=== PATIENT | female | born 1945 | race Caucasian/White ===

== ENCOUNTER 2017-01-06 12:24 | Inpatient (IN) | payer MEDICARE ==
[2017-01-06 13:40] LABS: Basophils % (Auto) 0.5 % (0.0-1.8); Eosinophils % (Auto) 1.2 % (0.0-4.3); Hemoglobin 13.3 gm/dl (10.1-14.3); Mean Corpuscular HGB Conc 35 % (30-34); Mean Corpuscular Hemoglobin 32 pg (28-32); Mean Corpuscular Volume 91 fl (79-97); Platelet Count 265 K/mm3 (140-440); Red Blood Count 4.16 M/mm3 (3.65-5.03); Red Cell Distribution Width 16.3 % (13.2-15.2)
--- NOTE | 2017-01-06 13:43 | Emergency Department Report ---
HPI - General Chief Complaint: Chest Pain Time Seen by Provider: 01/06/17 12:54 - HPI HPI: This is a 71-year-old female presents to the emergency department with complaint of midsternal chest pressure and some shortness of breath that started this morning. She denies any back pain, nausea, vomiting, diaphoresis. She did not take anything but her normal medications for her symptoms prior to presentation. She has a history of CHF, mentioned, diabetes, hypertension but denies any history of DE, CVA, PE/DVT. Her microsoft bi developer is Dr. Willow Ramos and her primary care doctor is a Rocky Restrepo. No recent travel or sick contacts at home. She came in by EMS and did not receive anything in route. ED Past Medical Hx - Past Medical History Previous Medical History?: Yes Hx Hypertension: Yes Hx Congestive Heart Failure: Yes Hx Diabetes: Yes Hx Asthma: Yes Hx Dementia: Yes Additional medical history: BLIND LEFT EYE - Surgical History Past Surgical History?: Yes Hx Pacemaker: Yes Additional Surgical History: HYSTERECTOMY - Social History Smoking Status: Never Smoker Substance Use Type: None - Medications Home Medications: Home Medications Medication Instructions Recorded Confirmed Last Taken Type AtorvaSTATin [Lipitor] 10 mg PO DAILY 07/10/15 01/06/17 07/10/15 History Fluticasone/Salmeterol [Advair 1 puff IH BID #1 disk.w.dev 08/20/15 01/06/17 Unknown Rx Diskus 250-50 mcg] Insulin NPH/Regular [NovoLIN 70/30] 30 unit SQ QPM 08/20/15 01/06/17 Unknown History Insulin NPH/Regular [NovoLIN 70/30] 40 unit SQ QAM 08/20/15 01/06/17 Unknown History Potassium Chloride 8 meq PO QDAY 08/20/15 01/06/17 Unknown History Albuterol Sulfate [Ventolin HFA] 1 puff IH Q4H PRN #1 hfa.aer.ad 10/24/15 Unknown Rx Furosemide [Lasix TAB] 20 mg PO QDAY 05/31/16 01/06/17 Unknown History Losartan [Cozaar] 50 mg PO QDAY 05/31/16 01/06/17 Unknown History Famotidine [Pepcid] 20 mg PO BID #20 tablet 06/01/16 01/06/17 Unknown Rx ED Review of Systems ROS: Stated complaint: CHEST PAIN/SHORTNESS OF BREATH Other details as noted in HPI Comment: All other systems reviewed and negative Constitutional: denies: chills, fever Eyes: denies: eye pain, eye discharge, vision change ENT: denies: ear pain, throat pain Respiratory: shortness of breath. denies: cough, wheezing Cardiovascular: chest pain. denies: palpitations Gastrointestinal: denies: abdominal pain, nausea, diarrhea Genitourinary: denies: urgency, dysuria, discharge Musculoskeletal: denies: back pain, joint swelling, arthralgia Skin: denies: rash, lesions Neurological: denies: headache, weakness, paresthesias Physical Exam - Physical Exam Vital Signs: Vital Signs 01/06/17 12:49 Temperature 98.2 F Pulse Rate 79 Respiratory 19 Rate Blood Pressure 170/79 [Left] O2 Sat by Pulse 98 Oximetry Physical Exam: GENERAL: The patient is well-developed well-nourished. HEENT: Normocephalic. Atraumatic. Extraocular motions are intact. Patient has moist mucous membranes. Pupils equal reactive to light bilaterally. NECK: Supple. Trachea is midline. CHEST/LUNGS: Clear to auscultation. There is no respiratory distress noted. HEART/CARDIOVASCULAR: Regular. There is no tachycardia. There is no gallop rub or murmur. ABDOMEN: Abdomen is soft, nontender. Patient has normal bowel sounds. There is no abdominal distention. SKIN: There is no rash. There is no edema. There is no diaphoresis. NEURO: The patient is awake, alert, and oriented. The patient is cooperative. The patient has no focal neurologic deficits. The patient has normal speech. MUSCULOSKELETAL: There is no tenderness or deformity. There is no limitation range of motion. There is no evidence of acute injury. ED Course Vital Signs 01/06/17 12:49 Temperature 98.2 F Pulse Rate 79 Respiratory 19 Rate Blood Pressure 170/79 [Left] O2 Sat by Pulse 98 Oximetry ED Medical Decision Making - Lab Data Result diagrams: 01/06/17 13:09 01/06/17 13:09 - EKG Data -: EKG Interpreted by Me EKG shows normal: sinus rhythm, axis (LAD), intervals, QRS complexes (Q waves to septal leads), ST-T waves (flat t waves) Rate: normal - EKG Data When compared to previous EKG there are: previous EKG unavailable Interpretation: nonspecific ST-T wave artur, other (q waves to septal leads) - Radiology Data Radiology results: image reviewed interpreted by me: Chest x-ray did not show any acute process. Heart is normal shape and size. No effusions. No pneumothorax. No signs of pneumonia seen. - Medical Decision Making 71-year-old female presents with chest pain and shortness of breath for the past few days. EKG shows some Q waves but no obvious ST elevation DE. Chest x- ray does not show any acute process. So far patient has negative troponin 1 and a negative d-dimer. Patient given some pain medication but still continues to have discomfort. She had a stress test about 9 months ago. However since the patient continues to have discomfort and has multiple risk factors, she'll be admitted to hospital for further evaluation and treatment. She has been accepted for admission by the hospitalist, Dr. Vincent. - Differential Diagnosis DE, PE, pneumonia, costochondritis, bronchitis Critical Care Time: No Critical care attestation.: If time is entered above; I have spent that time in minutes in the direct care of this critically ill patient, excluding procedure time. ED Disposition Clinical Impression: History of permanent cardiac pacemaker placement Chest pain Qualifiers: Chest pain type: unspecified Qualified Code(s): R07.9 - Chest pain, unspecified Hypertension Qualifiers: Hypertension type: essential hypertension Qualified Code(s): I10 - Essential ( primary) hypertension Disposition: OP ADMITTED IP TO THIS HOSP Is pt being admited?: Yes Condition: Stable Time of Disposition: 17:52
[2017-01-06 13:46] LABS: Anion Gap 18 mmol/L; BUN/Creatinine Ratio 31.25; Blood Urea Nitrogen 25 mg/dL (7-17); Calcium 9.3 mg/dL (8.4-10.2); Carbon Dioxide 23 mmol/L (22-30); Chloride 99.3 mmol/L (98-107); Glucose 157 mg/dL (65-100); Potassium 3.7 mmol/L (3.6-5.0); Sodium 137 mmol/L (137-145)
--- NOTE | 2017-01-06 14:10 | XRay Report ---
AP CHEST: HISTORY: chest pain 2-lead pacemaker devices unchanged since 05/31/16. Heart size and pulmonary vascularity are within normal limits. The lungs are mildly hyperinflated but clear. No evidence for pneumonia, CHF or pneumothorax. IMPRESSION: No acute cardiopulmonary process.
[2017-01-06] MEDS ORDERED: MORPHINE IV ONE (14:24)
[2017-01-06] MEDS ORDERED: NORMODYNE IV ONE (14:24)
[2017-01-06] MEDS ORDERED: MORPHINE ONE (14:39)
--- NOTE | 2017-01-06 15:04 | History and Physical Report ---
History of Present Illness Chief complaint: My chest Hurts History of present illness: 71 YO Female with DM, CHF, Dementia,Asthma,HTN, COPD, HLD, Metabolic Syndrome presents to ED for evaluation. Pt states that she has been experiencing pain in her chest for the past 1 day. Pt states that pain in 5/10, substernal, nonradiating, not worsened with exertion, or relieved with rest. Pain is constant, not associated with meals. Pt denies leg pain, calf swelling, prolonged travel/immobility, individual/family history of DVT/PE, syncope, hemoptysis, trauma, productive cough, fever, unintentional weight loss, night sweats, or recent ill contacts. Past History Past Medical History: arthritis, COPD, diabetes, heart failure, hypertension, hyperlipidemia Past Surgical History: hysterectomy, Other (Pacemaker placement.) Social history: single, lives with family. denies: smoking, alcohol abuse Family history: diabetes, hypertension Medications and Allergies Allergies Allergy/AdvReac Type Severity Reaction Status Date / Time aspirin AdvReac Unknown Verified 10/24/15 03:19 Home Medications Medication Instructions Recorded Confirmed Last Taken Type AtorvaSTATin [Lipitor] 10 mg PO DAILY 07/10/15 01/06/17 07/10/15 History Fluticasone/Salmeterol [Advair 1 puff IH BID #1 disk.w.dev 08/20/15 01/06/17 Unknown Rx Diskus 250-50 mcg] Insulin NPH/Regular [NovoLIN 70/30] 30 unit SQ QPM 08/20/15 01/06/17 Unknown History Insulin NPH/Regular [NovoLIN 70/30] 40 unit SQ QAM 08/20/15 01/06/17 Unknown History Potassium Chloride 8 meq PO QDAY 08/20/15 01/06/17 Unknown History Albuterol Sulfate [Ventolin HFA] 1 puff IH Q4H PRN #1 hfa.aer.ad 10/24/15 Unknown Rx Furosemide [Lasix TAB] 20 mg PO QDAY 05/31/16 01/06/17 Unknown History Losartan [Cozaar] 50 mg PO QDAY 05/31/16 01/06/17 Unknown History Famotidine [Pepcid] 20 mg PO BID #20 tablet 06/01/16 01/06/17 Unknown Rx Review of Systems All systems: negative Cardiovascular: chest pain Exam - Constitutional Vitals: Temp Pulse Resp BP Pulse Ox 98.2 F 79 19 170/79 98 01/06/17 12:49 01/06/17 12:49 01/06/17 12:49 01/06/17 12:49 01/06/17 12:49 General appearance: Present: obese - EENT Eyes: Present: PERRL ENT: hearing intact, clear oral mucosa - Neck Neck: Present: supple, normal ROM - Respiratory Respiratory effort: normal Respiratory: bilateral: CTA - Cardiovascular Heart Sounds: Present: S1 & S2. Absent: rub, click - Extremities Extremities: pulses symmetrical, No edema Peripheral Pulses: within normal limits - Abdominal General gastrointestinal: Present: soft, non-tender, non-distended, normal bowel sounds Female genitourinary: Present: normal - Integumentary Integumentary: Present: clear, warm, dry - Musculoskeletal Musculoskeletal: gait normal, strength equal bilaterally - Psychiatric Psychiatric: appropriate mood/affect, intact judgment & insight - Neurologic Neurologic: CNII-XII intact, moves all extremities Results - Labs CBC & Chem 7: 01/06/17 13:09 01/06/17 13:09 Labs: Abnormal lab results 01/06/17 01/06/17 Range/Units 13:09 13:09 WBC 13.0 H (4.5-11.0) K/mm3 MCHC 35 H (30-34) % RDW 16.3 H (13.2-15.2) % Seg Neutrophils % 78.1 H (40.0-70.0) % Seg Neutrophils # 10.2 H (1.8-7.7) K/mm3 BUN 25 H (7-17) mg/dL Glucose 157 H (65-100) mg/dL Assessment and Plan - Patient Problems (1) Angina at rest Current Visit: Yes Status: Acute Plan to address problem: Chest pain protocol: Serial cardiac enzymes, ekg, telemetry monitoring, D dimer , PPI therapy (2) Accelerated hypertension Current Visit: Yes Status: Acute Plan to address problem: Monitor BP q shift, resume home medication (3) Diabetes Current Visit: Yes Status: Acute Qualifiers: Diabetes mellitus type: D Diabetes mellitus complication status: D Diabetes mellitus complication detail: D Diabetic retinopathy severity: D Proliferative retinopathy type: P Diabetes mellitus macular edema: D Diabetes mellitus rodent exterminator insulin use: D Laterality: L Chronic kidney disease stage: C Plan to address problem: ADA diet, insulin, accu check (4) COPD (chronic obstructive pulmonary disease) Current Visit: Yes Status: Acute Qualifiers: COPD type: C Chronic bronchitis type: C Emphysema type: E Plan to address problem: supplemental oxygen, nebs, NIPPV as clinically indicated. (5) DVT prophylaxis Current Visit: Yes Status: Acute
[2017-01-06] MEDS ORDERED: ZOFRAN IV PRN (15:08)
[2017-01-06] MEDS ORDERED: DUONEB 0.5 MG-3 MG/3 ML SOLN IH PRN (15:08)
[2017-01-06] MEDS ORDERED: MILK OF MAGNESIA PO PRN (15:08)
[2017-01-06] MEDS ORDERED: TYLENOL PO PRN (15:08)
[2017-01-06] MEDS ORDERED: DULCOLAX PR PRN (15:08)
[2017-01-06] MEDS ORDERED: SODIUM CHLORIDE FLUSH SYRINGE 10 ML IV PRN (15:10)
[2017-01-06] MEDS ORDERED: PROAIR IH PRN (15:11)
[2017-01-06] MEDS ORDERED: PROTONIX PO ONE (15:13)
--- NOTE | 2017-01-06 15:15 | Admit Criteria Form ---
Admission Criteria Documentation: CHEST PAIN Clinical Indications for Admission to Inpatient Care (Place 'X' for any and all applicable criteria): Admission is indicated for chest pain and ANY ONE of the following(1)(2)(3)(4)(5 ): [ ]I. Angina with acute coronary syndrome (Also use Myocardial Infarction or Angina guideline) [ ]II. Hemodynamic instability [X ]III. Angina needing acute intervention as indicated by ALL of the following (11)(12): [X ]a) Unstable angina is present as indicated by angina that is ANY ONE of the following: [ ]i) New onset [ ]ii) Nocturnal [X ]iii) Prolonged at rest [ ]iv) Progressive [ X]b) Angina warrants acute intervention as indicated by ANY ONE of the following: [ ]i) Recurrent angina (e.g, not responding as previously to treatment) [ ]ii) Angina at rest or with low-level activities despite initial medical therapy [ ]iii) New or presumably new ST-segment depression on ECG [ ]iv) Signs or symptoms of heart failure (eg, dyspnea, pulmonary edema) [ ]v) New or worsening mitral regurgitation [ ]vi) Hemodynamic instability [ ]vii) Dangerous arrhythmia (eg, sustained ventricular tachycardia) [ ]viii) History of percutaneous coronary intervention within 6 months [ ]ix) History of coronary artery bypass graft surgery [ ]x) BREONNA risk score of 2 or greater[A] [X ]xi) History of Diabetes(14) [ ]xii) High-risk cardiac ischemia findings on noninvasive testing (e.g, echocardiogram, treadmill testing, nuclear scan) [ ]xiii) Chronic renal insufficiency (ie, estimated GFR less than 60 mL/min/1.732m) [ ]xiv) Left ventricular ejection fraction less than 40% [ ]IV. Evidence of OH (eg, cardiac biomarkers positive, ST-segment elevation on ECG) also use Myocardial Infarction Criteria Form. [ ]V. Pulmonary edema [ ]. Respiratory distress [ ]VII. Chest pain indicative of serious diagnosis other than coronary artery disease (eg, aortic dissection) [ ]VIII. Contraindications and/or Inappropriate clinical situations for Observational Care in patients with Chest Pain, when ANY ONE of the following is required: [ ]a) Patient with risk factor for pulmonary embolism, acute coronary syndrome and myocardial infarction (18) [ ]b) Patient with Pulmonary embolism require an average LOS of 4.3 days, therefore emergency department observation management is inappropriate 18,23 [ ]c) Painful condition/s in the elderly, have the highest rate of recidivism after emergency department observation management (10.8%) 20,21,22 [ ]d) Elevated cardiac biomarker requires intensive and exhaustive care (19) [X ]IX. General contraindications and/or Inappropriate clinical situations for Observational Care in patients with Chest Pain, when ANY ONE of the following is required: [X ]a) Prediction of prolongation of LOS based on ANY ONE of the following may be considered as a contraindication for observational care 2, 3, 4, 5, 6, 7, 8, 9, 10, 11 [X ]i) Age > 65 yrs. [ ]ii) Patient arriving by ambulance [ ]iii) Patient with high acuity [ ]iv) Patient requiring vital sign monitoring [ ]v) Patient on IV medication [ ]b) Systolic blood pressures 180mmHg 3,12 [ ]c) Patient with altered mental status including delirium and other alteration of consciousness, (3) [ ]d) Patient whose discharge disposition will be to a retirement home or rehabilitation home should not be managed in Emergency Department Observation Unit. CMS rule requires 3 days hospital stay before such placement. 3,13 [ ]e) Patient with failure to thrive due to broad array of etiologies 3,16,17 [ ]f) Inability to ambulate 3,14 Extended stay beyond goal length of stay may be needed for (1)(28): [ ]a) Specific condition diagnosed after evaluation (eg, pulmonary embolism, aortic dissection) [ ]b) Unstable angina [ ]c) Continued suspicion of acute coronary syndrome with inability to complete needed cardiac evaluation (eg, patient clinically unable to undergo stress testing) [ ]d) Myocardial infarction (Contents from ANGINA and CHEST PAIN clinical indications for admission to inpatient care have been integrated in this form) The original [employer] content created by [employer] has been revised. The portions of the content which have been revised are identified through the use of italic text or in bold, and [facility] has neither reviewed nor approved the modified material. All other unmodified content is copyright [facility]. Please see references footnoted in the original [facility] edition 2016 Admission Criteria Met: Yes
[2017-01-06] MEDS ORDERED: PROVENTIL IH PRN (15:24)
[2017-01-06 18:07] LABS: Creatine Kinase MB 1.5 ng/mL (0.0-4.0)
[2017-01-06 18:08] LABS: Creatine Kinase 56 units/L (30-135)
[2017-01-06] MEDS: PULMICORT IH SCH (20:30)
[2017-01-06] MEDS: BROVANA NEBU IH SCH (20:30)
[2017-01-06 21:52] LABS: Creatine Kinase MB 1.3 ng/mL (0.0-4.0)
[2017-01-06 21:53] LABS: Creatine Kinase 56 units/L (30-135)
[2017-01-06] MEDS ORDERED: NON-FORMULARY (Fluticasone/Salmeterol [Advair Diskus 250-50 Mcg] 1 PUFF) IH SCH (22:00)
[2017-01-06] MEDS: PEPCID PO SCH (23:31)
[2017-01-07] MEDS: PULMICORT IH SCH (08:07)
[2017-01-07] MEDS: BROVANA NEBU IH SCH (08:08)
[2017-01-07] MEDS ORDERED: D50W (25GM) IV ONE ×2 (09:00→10:00)
[2017-01-07] MEDS ORDERED: LASIX PO SCH (10:00)
[2017-01-07] MEDS ORDERED: KLOR-CON 8 PO SCH (10:00)
[2017-01-07] MEDS ORDERED: LEXISCAN IV ONE (11:00)
--- NOTE | 2017-01-07 11:21 | Progress Note ---
Assessment and Plan Assessment and plan: Patient is a 71 yo woman with DM, CHF, Dementia, Asthma, HTN, COPD and HLD, who presented with CP. Cardiac enzymes was negative. CXR was negative for acute findings, WBC was 13 without s/sx of infection. -CP, msk, costochondritis if stress test negative -dm hyperosmolality most likely History Interval history: Patient seen and examined. Follow up on chest pain which has resolved. Overnight uneventful. No cp, sob, n/v or severe headaches. Imaging, old records , testing, labs, nursing notes reviewed. Plan discussed with patient. Hospitalist Physical - Physical exam Narrative exam: GEN: WDWN, NAD, AWAKE, ALERT, ORIENTATED 3 HEENT: NCAT, PERRL, EOMI, OP CLEAR NECK: SUPPLE, NO THYROMEGALY, NO JVD, NO LAD CVS: RRR, NORMAL S1S2 LUNGS/CHEST: CTA B, NORMAL CHEST EXPANSION B, GOOD AIR ENTRY B, reproducible substernal chest wall tenderness ABD: SOFT NTND, GBS, NO REBOUND OR GUARDING EXT/SKIN: NO SIGNIFICANT EDEMA OR RASH MSK: FROM X 4 EXTREMITIES NEURO: CN 2-12 GROSSLY INTACT, NO new FOCAL DEFICITS PSY: CALM - Constitutional Vitals: Temp Pulse Resp BP Pulse Ox 97.6 F 84 18 141/65 96 01/07/17 09:07 01/07/17 09:07 01/07/17 09:07 01/07/17 09:07 01/07/17 09:07 General appearance: Present: obese Results - Labs CBC & Chem 7: 01/06/17 13:09 01/06/17 13:09 Labs: Laboratory Last Values WBC 13.0 K/mm3 (4.5-11.0) H 01/06/17 13:09 RBC 4.16 M/mm3 (3.65-5.03) 01/06/17 13:09 Hgb 13.3 gm/dl (10.1-14.3) 01/06/17 13:09 Hct 38.0 % (30.3-42.9) 01/06/17 13:09 MCV 91 fl (79-97) 01/06/17 13:09 MCH 32 pg (28-32) 01/06/17 13:09 MCHC 35 % (30-34) H 01/06/17 13:09 RDW 16.3 % (13.2-15.2) H 01/06/17 13:09 Plt Count 265 K/mm3 (140-440) 01/06/17 13:09 Lymph % (Auto) 14.6 % (13.4-35.0) 01/06/17 13:09 [place] % (Auto) 5.6 % (0.0-7.3) 01/06/17 13:09 Eos % (Auto) 1.2 % (0.0-4.3) 01/06/17 13:09 Baso % (Auto) 0.5 % (0.0-1.8) 01/06/17 13:09 Lymph # 1.9 K/mm3 (1.2-5.4) 01/06/17 13:09 [place] # 0.7 K/mm3 (0.0-0.8) 01/06/17 13:09 Eos # 0.2 K/mm3 (0.0-0.4) 01/06/17 13:09 Baso # 0.1 K/mm3 (0.0-0.1) 01/06/17 13:09 Seg Neutrophils % 78.1 % (40.0-70.0) H 01/06/17 13:09 Seg Neutrophils # 10.2 K/mm3 (1.8-7.7) H 01/06/17 13:09 D-Dimer < 135.00 ng/mlDDU (0-234) 01/06/17 15:16 Sodium 137 mmol/L (137-145) 01/06/17 13:09 Potassium 3.7 mmol/L (3.6-5.0) 01/06/17 13:09 Chloride 99.3 mmol/L (98-107) 01/06/17 13:09 Carbon Dioxide 23 mmol/L (22-30) 01/06/17 13:09 Anion Gap 18 mmol/L 01/06/17 13:09 BUN 25 mg/dL (7-17) H 01/06/17 13:09 Creatinine 0.8 mg/dL (0.7-1.2) 01/06/17 13:09 Estimated GFR > 60 ml/min 01/06/17 13:09 BUN/Creatinine Ratio 31.25 % 01/06/17 13:09 Glucose 157 mg/dL (65-100) H 01/06/17 13:09 POC Glucose 297 (70-105) H 01/06/17 22:16 Calcium 9.3 mg/dL (8.4-10.2) 01/06/17 13:09 Total Creatine Kinase 56 units/L (30-135) 01/06/17 21:17 CK-MB (CK-2) 1.3 ng/mL (0.0-4.0) 01/06/17 21:17 CK-MB (CK-2) Rel Index 2.3 (0-4) 01/06/17 21:17 Troponin T < 0.010 ng/mL (0.00-0.029) 01/06/17 21:17 Triglycerides 182 mg/dL (2-149) H 01/06/17 17:55 Cholesterol 193 mg/dL (50-199) 01/06/17 17:55 LDL Cholesterol Direct 123 mg/dL (50-130) 01/06/17 17:55 HDL Cholesterol 34 mg/dL (40-59) L 01/06/17 17:55 Cholesterol/HDL Ratio 5.67 % 01/06/17 17:55 - Imaging and Cardiology Chest x-ray: report reviewed
--- NOTE | 2017-01-07 11:28 | Discharge Summary ---
Providers - Providers Date of Admission: 01/06/17 15:08 Date of discharge: 01/07/17 Attending physician: AMBER NUNN 01/06/17 Consult to Cardiac Rehabilitation [CONS] Routine Reason For Exam: Phase I Primary care physician: RENE HOOD MD Hospitalization Condition: Stable Hospital course: Patient is a 71 yo woman with DM, CHF, Dementia, Asthma, HTN, COPD and HLD, who presented with CP. Cardiac enzymes was negative. CXR was negative for acute findings, WBC was 13 without s/sx of infection. -CP, msk, costochondritis if stress test negative -dm relative asym hypoglycemia due to npo. -chf without exacerbation -copd without exacerbation Disposition: DISCHARGED TO HOME OR SELFCARE Core Measure Documentation - Palliative Care Palliative Care/ Comfort Measures: Not Applicable - Core Measures Any of the following diagnoses?: none - VTE Discharge Requirements Deep Vein Thrombosis/Pulmonary Embolism Present on Admission: No Has pt received <5 days of overlap therapy or INR<2.0: No Anticoagulant overlap therapy prescribed at discharge: No Contraindication No Overlap Therapy order at DC: Not Indicated Exam - Physical Exam Narrative exam: GEN: WDWN, NAD, AWAKE, ALERT, ORIENTATED 3 HEENT: NCAT, PERRL, EOMI, OP CLEAR NECK: SUPPLE, NO THYROMEGALY, NO JVD, NO LAD CVS: RRR, NORMAL S1S2 LUNGS/CHEST: CTA B, NORMAL CHEST EXPANSION B, GOOD AIR ENTRY B, reproducible substernal chest wall tenderness ABD: SOFT NTND, GBS, NO REBOUND OR GUARDING EXT/SKIN: NO SIGNIFICANT EDEMA OR RASH MSK: FROM X 4 EXTREMITIES NEURO: CN 2-12 GROSSLY INTACT, NO new FOCAL DEFICITS PSY: CALM - Constitutional Vitals: Temp Pulse Resp BP Pulse Ox 97.6 F 84 18 141/65 96 01/07/17 09:07 01/07/17 09:07 01/07/17 09:07 01/07/17 09:07 01/07/17 09:07 Plan Activity: other Additional Instructions: Over the counter baby aspirin daily would be beneficial. Follow up with: PRIMARY CAREMD [Primary Care Provider] - 7 Days
[2017-01-07] MEDS: PEPCID PO SCH (14:09)
--- NOTE | 2017-01-07 23:12 | Treadmill Report ---
NUCLEAR PERFUSION SCAN REFERRING PHYSICIAN: Dr. Vincent. PROTOCOL: The patient was brought to the stress lab in a postabsorptive state, given 10 mCi of technetium 99m at rest. The patient underwent rest imaging. The patient underwent Lexiscan stress test per standard protocol. At peak stress, the patient was given 26 mCi of technetium 99m. Shortly thereafter, the patient underwent stress imaging. Raw imaging reveals mild GI artifact, no significant motion artifact. SPECT imaging examined carefully in the horizontal long axis, vertical long axis, and short axis views. There is normal homogenous uptake of radioisotope in all reported segments. No evidence of a significant fixed or reversible perfusion defects suggestive of prior infarction or ischemia. Gated wall motion reveals normal systolic thickening. Calculated ejection fraction of 80%. No TID. CONCLUSIONS: 1. Normal myocardial perfusion scan without evidence of active ischemia or prior infarction. 2. Normal left ventricular systolic performance without evidence of transient ischemic dilatation or stress-induced segmental wall motion abnormalities. JOB# [id number] TONY/MARCO ANTONIO
[2017-01-08 10:17] VITALS: BP 141/59
== END 2017-01-07 16:20 | disposition home or self-care (01) | DRG 206 ==
LOC: ED 12:24 → 4A 15:08
PROVIDERS: ADMIT Internal Medicine; ATTEND Internal Medicine
DX: M94.0 Chondrocostal junction syndrome [Tietze] (principal); J44.9 Chronic obstructive pulmonary disease, unspecified; M19.90 Unspecified osteoarthritis, unspecified site; E11.649 Type 2 diabetes mellitus with hypoglycemia without coma; E78.5 Hyperlipidemia, unspecified; I50.9 Heart failure, unspecified; I11.0 Hypertensive heart disease with heart failure; F03.90 Unspecified dementia, unspecified severity, without behavioral disturbance, psychotic disturbance, mood disturbance, and anxiety; H54.42 Blindness, left eye, normal vision right eye; Z82.49 Family history of ischemic heart disease and other diseases of the circulatory system; Z83.3 Family history of diabetes mellitus; Z90.710 Acquired absence of both cervix and uterus; Z79.899 Other long term (current) drug therapy; Z95.0 Presence of cardiac pacemaker; Z88.6 Allergy status to analgesic agent
CPT/HCPCS: 36415; 71010; 78452; 80048; 80061; 82550; 82553; 82962; 84484; 85025; 85379; 93005; 93010; 93017; 94640; 96374; A9270-GY; A9502; J1815; J2270; J2785

== ENCOUNTER 2019-03-22 10:50 | Outpatient (CLI) | payer MEDICARE ==
[2019-03-22 12:40] LABS: Hematocrit 40.8 % (30.3-42.9); Hemoglobin 14.1 gm/dl (10.1-14.3); Mean Corpuscular HGB Conc 35 % (30-34); Mean Corpuscular Volume 94 fl (79-97); Platelet Count 360 K/mm3 (140-440); Red Blood Count 4.36 M/mm3 (3.65-5.03)
[2019-03-22 15:19] LABS: Alanine Aminotransferase 12 units/L (7-56); Albumin 4.7 g/dL (3.9-5); BUN/Creatinine Ratio 32; Blood Urea Nitrogen 29 mg/dL (7-17); Hemolysis Index 3
[2019-03-22 20:11] LABS: Chol/HDL Ratio 1.98 %; HDL Cholesterol 82 mg/dL (40-59); LDL Cholesterol,Direct 75 mg/dL (50-130)
[2019-03-25 11:27] LABS: Vitamin D, 25-OH, D2 4 ng/mL
== END 2019-03-22 10:51 | disposition home or self-care (01) ==
LOC: LAB 10:50
PROVIDERS: ATTEND Internal Medicine
DX: Z00.01 Encounter for general adult medical examination with abnormal findings (principal); Z13.21 Encounter for screening for nutritional disorder; E11.65 Type 2 diabetes mellitus with hyperglycemia; E78.5 Hyperlipidemia, unspecified; I11.0 Hypertensive heart disease with heart failure; I50.9 Heart failure, unspecified; J45.909 Unspecified asthma, uncomplicated; Z90.710 Acquired absence of both cervix and uterus
CPT/HCPCS: 36415; 80053; 80061; 82306; 82607; 83036; 84443; 85027